=== PATIENT | male | born 1970 | race Caucasian/White ===

== ENCOUNTER 2022-02-27 18:26 | Emergency (ER) | payer MEDICAID ==
[~2022-02-27] VITALS: Ht 170.2 cm; Wt 73.1 kg
--- NOTE | 2022-02-27 18:48 | NUR ---
Romi murguia in ED - 02/27/22 at 1920 by [email or web address] NO SHOW.
[2022-02-27 19:16] VITALS: BP 132/86
[2022-02-27] MEDS ORDERED: AMOXICILLIN 500 MG CAP PO ONE (19:25)
[2022-02-27] MEDS ORDERED: AMOX500C25 PO (19:25)
[2022-02-27] MEDS ORDERED: IBUPROFEN 800 MG TAB PO ONE (19:25)
--- NOTE | 2022-02-27 19:34 | NUR ---
Patient discharged with v/s stable. Written and verbal after care instructions given and explained. Patient alert, oriented and verbalized understanding of instructions. Ambulatory with steady gait. All questions addressed prior to discharge. ID band removed. Patient advised to follow up with PMD. Rx of AMOXICILLIN given.
== END 2022-02-27 19:35 | disposition home or self-care (01) ==
LOC: MED 18:26
DX: K04.7 Periapical abscess without sinus (principal); Z79.899 Other long term (current) drug therapy
CPT/HCPCS: 99283